=== PATIENT | male | born 1955 | race Caucasian/White ===

== ENCOUNTER 2023-08-24 10:00 | Inpatient (IN) | payer BC ==
[2023-08-18 10:42] VITALS: BMI 22.7
[2023-08-24] MEDS ORDERED: MIDAZOLAM HCL 2 MG/2 ML SINGLE DOSE VIAL ONE (10:09)
[2023-08-24] MEDS ORDERED: CEFAZOLIN 2 GM in DEXTROSE 5%-WATER - 100 ML IVPB ONE (11:30)
[2023-08-24] MEDS ORDERED: BUPIVACAINE HCL/PF 0.5% (5 MG/ML) 30 ML VIAL IJ ONE (11:32)
[2023-08-24] MEDS ORDERED: BUPIVACAINE LIPOSOME/PF (EXPAREL) 266 MG/20 ML VIAL ONE (11:33)
[2023-08-24] MEDS ORDERED: VANCOMYCIN 1,000 MG VIAL (RESTRICTED TO ID ONLY) ONE (11:53)
[2023-08-24] MEDS ORDERED: FENTANYL CITRATE/PF 50 MCG/ML VIAL ONE (12:02)
[2023-08-24] MEDS ORDERED: BUPIVACAINE HCL/PF 0.5% (5MG/ML) 10 ML VIAL ONE (12:02)
[2023-08-24] MEDS ORDERED: BUPIVICAINE 0.25%/MORPH PF/KETOROLAC - 51ML DISP.SYRINGE IA ONE ×2 (12:48→14:31)
[2023-08-24] MEDS ORDERED: TRANEXAMIC ACID 1000 MG/10 ML VIAL IVPUSH ONE (13:00)
[2023-08-24] MEDS ORDERED: TRANEXAMIC ACID 1000 MG/10 ML VIAL ONE (14:11)
[2023-08-24] MEDS ORDERED: oxyCODONE HCL 5 MG TABLET PO PRN ×2 (15:21)
[2023-08-24] MEDS ORDERED: ONDANSETRON 4 MG/2 ML VIAL IVPUSH PRN ×2 (15:21→15:22)
[2023-08-24] MEDS ORDERED: MAG HYDROX/AL HYDROX/SIMETH 30 ML UNIT-DOSE CUP PO PRN (15:22)
[2023-08-24] MEDS ORDERED: MAGNESIUM HYDROX 2400MG/30ML ORAL SUSPENSION 30 ML CUP PO PRN (15:22)
[2023-08-24] MEDS ORDERED: ACETAMINOPHEN INJECTION 100 ML IVPB ONE (15:26)
[2023-08-24] MEDS ORDERED: LACTATED RINGERS SOLUTION 1,000 ML IV SCH (15:30)
[2023-08-24] MEDS: ACETAMINOPHEN 1000 MG/100 ML BAG IVPB ONE ×2 (15:30→18:21)
[2023-08-24] MEDS: LACTATED RINGERS SOLUTION 1,000 ML IV SCH (16:15)
[2023-08-24] MEDS ORDERED: ACETAMINOPHEN 500 MG TABLET (FP) PO SCH (21:30)
[2023-08-24] MEDS: CEFAZOLIN SODIUM 2 GM in DEXTROSE 5%-WATER 100 ML IVPB SCH (21:34)
[2023-08-24] MEDS: ACETAMINOPHEN 500 MG TABLET (FP) PO SCH (21:34)
[2023-08-24] MEDS: ASPIRIN 81 MG CHEWABLE TABLETS PO SCH (21:34)
[2023-08-24] MEDS: GABAPENTIN 300 MG CAPSULE PO SCH (21:35)
[2023-08-24] MEDS: SENNOSIDES/DOCUSATE COMBO (SENNA PLUS) TABLET (UD) PO SCH (21:36)
[2023-08-25] MEDS: CEFAZOLIN SODIUM 2 GM in DEXTROSE 5%-WATER 100 ML IVPB SCH (05:58)
[2023-08-25] MEDS: ACETAMINOPHEN 500 MG TABLET (FP) PO SCH ×2 (06:02→13:23)
[2023-08-25] MEDS ORDERED: LEVOTHYROXINE 100 MCG, LEVOTHYROXINE 75 MCG PO SCH (07:00)
[2023-08-25 08:21] LABS: HEMATOCRIT 34.1 % (35.4-49); HEMOGLOBIN 10.9 G/dL (11.7-16.9); MCH 29.4 pg (25.7-33.7); MEAN CELL VOLUME 91.8 fl (80-96); MEAN PLT VOLUME 9.9 fl (7.5-11.1); PLATELET COUNT 126.5 10^3/uL (134-434); RBC 3.71 10^6/uL (4.00-5.60); RDW 14.6 % (11.9-15.9)
[2023-08-25] MEDS: SENNOSIDES/DOCUSATE COMBO (SENNA PLUS) TABLET (UD) PO SCH (09:15)
[2023-08-25] MEDS: GABAPENTIN 300 MG CAPSULE PO SCH (09:15)
[2023-08-25] MEDS: ASPIRIN 81 MG CHEWABLE TABLETS PO SCH (09:15)
[2023-08-25 09:33] LABS: CALCIUM 8.5 mg/dl (8.5-10.1); CREATININE 0.9 mg/dl (0.6-1.3)
[2023-08-25] MEDS ORDERED: PATIENT'S OWN MEDICATION (NON-FORMULARY) (Levothyroxine Sodium [Levothyroxine Sodium] 175 PO SCH (10:00)
[2023-08-25] MEDS ORDERED: PANTOPRAZOLE 40 MG TABLET PO SCH (10:00)
[2023-08-25] MEDS: LACTATED RINGERS SOLUTION 1,000 ML IV SCH (15:35)
[2023-08-25 16:39] VITALS: BP 110/59; PULSE 71; RESP 19; TEMP 97.6
== END 2023-08-25 16:19 | disposition home or self-care (01) | DRG 470 ==
LOC: FASUSAT 10:00 → SUATTDRO 10:00 → FASUSAT 10:05 → FM/S 15:24
PROVIDERS: ADMIT Internal Medicine; ATTEND Internal Medicine
PROC: 8E0Y0CZ Robotic Assisted Procedure of Lower Extremity, Open Approach (ICD-10-PCS; 2023-08-24)
PROC: 0SRD0JZ Replacement of Left Knee Joint with Synthetic Substitute, Open Approach (ICD-10-PCS; principal; 2023-08-24 12:39)
DX: M17.12 Unilateral primary osteoarthritis, left knee (principal); E03.9 Hypothyroidism, unspecified; D51.0 Vitamin B12 deficiency anemia due to intrinsic factor deficiency
CPT/HCPCS: 36415; 73560-TC-LT-FY; 80048; 85027; 88305-TC; 88311-TC; 94760; 97116-GP; 97162-GP; C1776

== ENCOUNTER 2024-11-22 09:40 | Day surgery (SDC) | payer OTHER, MEDICARE ==
[2024-11-16 14:26] VITALS: BMI 22.6
[2024-11-22] MEDS ORDERED: MIDAZOLAM HCL 2 MG/2 ML SINGLE DOSE VIAL ONE ×2 (12:30→15:36)
[2024-11-22] MEDS ORDERED: BUPIVACAINE HCL/PF 2.5 MG/ML - 30 ML VIAL IJ ONE (12:30)
[2024-11-22] MEDS ORDERED: FENTANYL CITRATE/PF 50 MCG/ML VIAL ONE ×2 (12:30→18:03)
[2024-11-22] MEDS ORDERED: BUPIVACAINE HCL/PF 0.5% (5MG/ML) 10 ML VIAL ONE (12:31)
[2024-11-22] MEDS ORDERED: BUPIVACAINE HCL/PF 0.5% (5 MG/ML) 30 ML VIAL IJ ONE (12:31)
[2024-11-22] MEDS ORDERED: VANCOMYCIN 1,000 MG VIAL (RESTRICTED TO ID ONLY) ONE ×2 (12:46→16:55)
[2024-11-22] MEDS ORDERED: ONDANSETRON 4 MG/2 ML VIAL IVPUSH PRN ×2 (12:59→17:07)
[2024-11-22] MEDS ORDERED: oxyCODONE HCL 5 MG TABLET PO PRN (12:59)
[2024-11-22] MEDS ORDERED: LACTATED RINGERS SOLUTION 1,000 ML IV SCH ×2 (13:00→17:15)
[2024-11-22] MEDS ORDERED: SUCCINYLCHOLINE CHLORIDE 200 MG/10 ML SYRINGE ONE (13:28)
[2024-11-22] MEDS ORDERED: PROPOFOL 20 ML ONE (13:28)
[2024-11-22] MEDS ORDERED: ePHEDrine SULFATE 50 MG/1 ML AMPULE ONE (14:36)
[2024-11-22] MEDS ORDERED: BUPIVICAINE 0.25%/MORPH PF/KETOROLAC - 51ML DISP.SYRINGE IA ONE (14:43)
[2024-11-22 16:02] LABS: HEMATOCRIT 32.2 % (40.1-51.0); HEMOGLOBIN 10.5 g/dL (13.7-17.5); MCHC 32.6 g/dl (32.3-36.5); MEAN CELL VOLUME 91.2 fl (79.0-92.2); MEAN PLT VOLUME 10.7 fl (9.4-12.4); PLATELET COUNT 144 x10^3/uL (163-337)
[2024-11-22] MEDS ORDERED: ACETAMINOPHEN INJECTION 100 ML ONE (16:54)
[2024-11-22] MEDS ORDERED: SODIUM CHLORIDE 0.9% P/F 10 ML VIAL IJ ONE (16:55)
[2024-11-22] MEDS ORDERED: DEXAMETHASONE SOD PHOSPHATE 4 MG/1 ML VIAL ONE (16:55)
[2024-11-22] MEDS ORDERED: TRANEXAMIC ACID 1000 MG/10 ML VIAL ONE (16:55)
[2024-11-22] MEDS ORDERED: ONDANSETRON 4 MG/2 ML VIAL ONE (16:55)
[2024-11-22] MEDS ORDERED: ceFAZolin SODIUM 1 GM VIAL ONE (16:55)
[2024-11-22] MEDS ORDERED: MAG HYDROX/AL HYDROX/SIMETH 30 ML UNIT-DOSE CUP PO PRN (17:07)
[2024-11-22] MEDS ORDERED: [UNRECOGNIZED DRUG - OTHER] IM SCH (17:15)
[2024-11-22 19:34] VITALS: RESP 18
[2024-11-22] MEDS: LEVOTHYROXINE 100 MCG, LEVOTHYROXINE 75 MCG PO SCH (19:40)
[2024-11-22] MEDS: KETOROLAC TROMETHAMINE 15 MG/ML VIAL IVPUSH PRN (21:32)
[2024-11-22] MEDS: GABAPENTIN 300 MG CAPSULE PO SCH (21:32)
[2024-11-22] MEDS: SENNOSIDES/DOCUSATE COMBO (SENNA PLUS) TABLET (UD) PO SCH (21:32)
[2024-11-23] MEDS: CEFAZOLIN 2 GM/D5W 2 GM/50 ML ML IVPB SCH (01:58)
[2024-11-23 07:49] LABS: HEMATOCRIT 26.4 % (40.1-51.0); HEMOGLOBIN 8.7 g/dL (13.7-17.5); MEAN CELL VOLUME 91.3 fl (79.0-92.2); PLATELET COUNT 124 x10^3/uL (163-337); RDW 13.3 % (12.2-16.4)
[2024-11-23 08:06] LABS: CALCIUM 7.8 mg/dl (8.5-10.1); CREATININE 0.9 mg/dl (0.6-1.3); POTASSIUM 4.4 mmol/L (3.5-5.1)
[2024-11-23] MEDS: MULTIVITAMINS (DAILY MVI) TABLET (FP) PO SCH (09:05)
[2024-11-23] MEDS: PANTOPRAZOLE 40 MG TABLET PO SCH (09:05)
[2024-11-23] MEDS ORDERED: PATIENT'S OWN MEDICATION (NON-FORMULARY) (Levothyroxine Sodium [Levothyroxine Sodium] 175 PO SCH (10:00)
[2024-11-23] MEDS: ASPIRIN COATED 81 MG TABLET.EC PO SCH (12:54)
[2024-11-23 13:01] LABS: HEMOGLOBIN 8.8 g/dL (13.7-17.5); MCHC 32.6 g/dl (32.3-36.5); MEAN CELL VOLUME 91.2 fl (79.0-92.2)
[2024-11-23 13:02] LABS: PLATELET COUNT 127 x10^3/uL (163-337); RDW 13.4 % (12.2-16.4)
[2024-11-23] MEDS: oxyCODONE HCL 5 MG TABLET PO PRN (18:30)
[2024-11-24 07:50] LABS: HEMATOCRIT 27.8 % (40.1-51.0); HEMOGLOBIN 9.1 g/dL (13.7-17.5); MCHC 32.7 g/dl (32.3-36.5); MEAN CELL VOLUME 91.1 fl (79.0-92.2); MEAN PLT VOLUME 11.1 fl (9.4-12.4); PLATELET COUNT 124 x10^3/uL (163-337); RDW 13.3 % (12.2-16.4)
[2024-11-24] MEDS: ACETAMINOPHEN 1000 MG/100 ML BAG IVPB ONE (08:25)
[2024-11-24 08:33] LABS: ALBUMIN 3.3 g/dl (3.4-5.0); BILIRUBIN,TOTAL 0.5 mg/dl (0.2-1); CALCIUM 8.3 mg/dl (8.5-10.1); CREATININE 0.9 mg/dl (0.6-1.3); POTASSIUM 4.1 mmol/L (3.5-5.1); TOT PROT 4.8 g/dl (6.4-8.2)
[2024-11-24 10:08] VITALS: PULSE 78
[2024-11-24 14:53] VITALS: BP 106/56; TEMP 99
== END 2024-11-24 17:30 | disposition home or self-care (01) ==
LOC: SUATTDRO 09:40 → FASUSAT 09:40 → FM/S 19:10 → FASUSAT 11-24 17:30
PROC: 8E0Y0CZ Robotic Assisted Procedure of Lower Extremity, Open Approach (ICD-10-PCS; 2024-11-22)
PROC: 0SR90J9 Replacement of Right Hip Joint with Synthetic Substitute, Cemented, Open Approach (ICD-10-PCS; principal; 2024-11-22 14:13)
DX: M16.11 Unilateral primary osteoarthritis, right hip (principal)
CPT/HCPCS: 20985; 27130; C1776; S2900; 36415; 71045-TC-FY; 73502-TC-RT-FY; 80048; 80053; 85027; 86850; 86900; 86901; 88305-TC; 88311-TC; 94760; 97010-GP; 97116-GP; 97161-GP; C1713; C1889; J0131